=== PATIENT | male | born 1970 | race Hispanic/Latino ===

== ENCOUNTER 2016-11-24 05:47 | Emergency (ER) | payer OTHER, BC ==
[2016-11-24 05:59] VITALS: TEMP 98
[2016-11-24 06:01] VITALS: BMI 30.5
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
[2016-11-24] MEDS ORDERED: TDAP Vaccine 0.5 mL Syr IM ONE (06:18)
[2016-11-24] MEDS ORDERED: Silver Sulfadiazine 1% Cream (20 gm) TOP STA (06:18)
[2016-11-24 07:01] VITALS: BP 142/71; PULSE 84; RESP 17; O2SAT 100
[2016-11-24] MEDS ORDERED: Etomidate 20 mg/10ml Inj IV ONE (10:15)
[2016-11-24] MEDS ORDERED: Propofol 10 mg/ml Inj (20 ML) ONE (10:15)
== END 2016-11-24 07:00 | disposition home or self-care (01) ==
LOC: ED 05:47
DX: T20.17XA Burn of first degree of neck, initial encounter (principal); T21.11XA Burn of first degree of chest wall, initial encounter; X08.8XXA Exposure to other specified smoke, fire and flames, initial encounter; Y92.89 Other specified places as the place of occurrence of the external cause; Y99.0 Civilian activity done for income or pay; Z23 Encounter for immunization
CPT/HCPCS: 90471; 90715; 99283; J2704